=== PATIENT | male | born 1960 | race Caucasian/White ===

== ENCOUNTER → 2019-06-27 | Outpatient (REF) | payer OTHER ==
[~2019-06-27] MED LIST: ALLO100T70 PO; ASPI-715 PO; CEP500 PO; GLUC100026 PO; LISI-349 PO; MAGN400C PO; OXYC-865 PO; PRED20TA6 PO
[2019-06-27 16:24] LABS: PLATELET COUNT, AUTOMATED 373 K/uL (150-450)
== END ==
LOC: ZZSENDIN 16:15
DX: T84.51XD Infection and inflammatory reaction due to internal right hip prosthesis, subsequent encounter (principal); B95.1 Streptococcus, group B, as the cause of diseases classified elsewhere; I10 Essential (primary) hypertension; Z79.2 Long term (current) use of antibiotics; Z45.2 Encounter for adjustment and management of vascular access device
CPT/HCPCS: 82040; 82247; 82310; 82374; 82435; 82565; 82947; 84075; 84132; 84155; 84295; 84450; 84460; 84520; 85025; 86140

== ENCOUNTER → 2019-07-04 | Outpatient (REF) | payer OTHER ==
[2019-07-04 16:11] LABS: PLATELET COUNT, AUTOMATED 303 K/uL (150-450)
== END ==
LOC: ZZSENDIN 15:56
DX: Z45.2 Encounter for adjustment and management of vascular access device (principal); T84.51XD Infection and inflammatory reaction due to internal right hip prosthesis, subsequent encounter; B95.1 Streptococcus, group B, as the cause of diseases classified elsewhere; I10 Essential (primary) hypertension; Z79.2 Long term (current) use of antibiotics
CPT/HCPCS: 82040; 82247; 82310; 82374; 82435; 82565; 82947; 84075; 84132; 84155; 84295; 84450; 84460; 84520; 85025; 86140